=== PATIENT | male | born 1975 | race Caucasian/White ===

== ENCOUNTER 2017-01-16 20:22 | Emergency (ER) | payer SELFPAY ==
[2017-01-16 20:31] VITALS: RESP 16; TEMP 98.1
[2017-01-16] MEDS ORDERED: TDAP ADULT 0.5 ML INJ (BOOSTRIX) IM ONE (21:44)
[2017-01-16] MEDS ORDERED: HYDROCODONE/APAP 5/325 TAB PO ONE (21:44)
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
[2017-01-16] MEDS ORDERED: HYDROCOD/APAP 5/325 PREPACK#6 BTL TAKEHOME ONE (22:05)
[2017-01-16 22:52] VITALS: BP 154/85; PULSE 69; O2SAT 94
== END 2017-01-16 22:55 | disposition home or self-care (01) ==
DX: S82.832A Other fracture of upper and lower end of left fibula, initial encounter for closed fracture (principal); Z23 Encounter for immunization; V18.4XXA Pedal cycle driver injured in noncollision transport accident in traffic accident, initial encounter; Y92.410 Unspecified street and highway as the place of occurrence of the external cause; Y99.8 Other external cause status; Y93.55 Activity, bike riding

== ENCOUNTER 2017-01-24 10:59 | Day surgery (SDC) | payer MEDICAID ==
[~2017-01-24 10:59] MED LIST: ceFAZolin 2 GM/DEXTROSE 100 ML IV ONE
[2017-01-24] MEDS ORDERED: LIDOCAINE 1% 2 ML INJ ID PRN (12:07)
[2017-01-24] MEDS ORDERED: LR 1,000 ML IV ONE (12:07)
[2017-01-24] MEDS ORDERED: MIDAZOLAM 2 MG/2 ML VIAL IVP ONE (12:23)
[2017-01-24] MEDS ORDERED: BUPIVACAINE 0.5% 30 ML SDV ONE (12:23)
--- NOTE | 2017-01-24 12:26 | PDANEPAE ---
ANE Past Medical History - Cardiovascular History Hx Hypertension: No Hx Arrhythmias: No Hx Chest Pain: No Hx Coronary Artery / Peripheral Vascular Disease: No Hx CHF / Valvular Disease: No Hx Palpitations: No - Pulmonary History Hx COPD: No Hx Asthma/Reactive Airway Disease: No Hx Recent Upper Respiratory Infection: No Hx Oxygen in Use at Home: No Hx Sleep Apnea: No Sleep Apnea Screening Result - Last Documented: Negative - Neurologic History Hx Cerebrovascular Accident: No Hx Seizures: No Hx Dementia: No - Endocrine History Hx Diabetes: No - Renal History Hx Renal Disorders: No - Liver History Hx Hepatic Disorders: No - Neurological & Psychiatric Hx Hx Neurological and Psychiatric Disorders: No - Cancer History Hx Cancer: No Cancer History Comment: MOLE REMOVED - Congenital Disorder History Hx Congenital Disorders: No - Other Health History Other Health History: NEG - Chronic Pain History Chronic Pain: No - Surgical History Prior Surgeries: NONE ANE Review of Systems Review of Systems: - Exercise capacity METS (RN): 5 METS ANE Patient History - Allergies Allergies/Adverse Reactions: shellfish derived Allergy (Verified 01/16/17 20:26) - Home Medications Home Medications: Herbals/Supplements -Info Only 01/22/17 [Last Taken 01/20/17] - NPO status NPO Since - Liquids (Date): 01/24/17 NPO Since - Liquids (Time): 10:00 NPO Since - Solids (Date): 01/23/17 NPO Since - Solids (Time): 19:00 - Anes Hx Anes Hx: no prior problems - Smoking Hx Smoking Status: Never smoked - Alcohol Use Alcohol Use: Occasionally - Family Anes Hx Family Anes Hx: none Family Hx Anesthesia Complications: NEG ANE Labs/Vital Signs - Vital Signs Blood Pressure: 139/87 Heart Rate: 90 Respiratory Rate: 16 O2 Sat (%): 94 Height: 176.53 cm Weight: 81.647 kg ANE Physical Exam - Airway Neck exam: FROM Mallampati Score: Class 2 Mouth exam: normal dental/mouth exam - Pulmonary Pulmonary: no respiratory distress, clear to auscultation - Cardiovascular Cardiovascular: regular rate and rhythym, no murmur, rub, or gallop - ASA Status ASA Status: I ANE Anesthesia Plan Anesthesia Plan: general endotracheal anesthesia Regional Anesthesia: single shot NB, adductor canal FNB, popliteal SNB
--- NOTE | 2017-01-24 12:26 | PDHPUP ---
History & Physical Update H&P update statement: This history and physical update is based on an assessment of the patient which was completed after admission or registration (within 24 hours), but prior to the surgery/procedure.
[2017-01-24] MEDS ORDERED: CEFAZOLIN 2 GM/DEXTROSE/100 ML BAG IV ONE (12:42)
[2017-01-24] MEDS ORDERED: fentaNYL 100 MCG/2 ML INJ ONE (12:48)
[2017-01-24] MEDS ORDERED: PROPOFOL 200 MG/20 ML VIAL ONE ×2 (12:48→12:49)
[2017-01-24] MEDS ORDERED: DEXAMETHASONE 4 MG/ML VIAL ONE (13:14)
[2017-01-24] MEDS ORDERED: ONDANSETRON 4 MG/2 ML VIAL ONE (13:14)
[2017-01-24] MEDS ORDERED: ACETAMINOPHEN 500 MG TAB PO PRN (13:45)
[2017-01-24] MEDS ORDERED: HYDROmorphONE/DILAUDID 1 MG/ML INJ IVP PRN (13:45)
[2017-01-24] MEDS ORDERED: OXYCODONE/APAP 5/325 TAB PO PRN (13:45)
[2017-01-24] MEDS ORDERED: NALOXONE HCL 0.4 MG/ML INJ IVP PRN (13:45)
[2017-01-24] MEDS ORDERED: fentaNYL 100 MCG/2 ML INJ IVP PRN (13:45)
[2017-01-24] MEDS ORDERED: ONDANSETRON 4 MG/2 ML VIAL IVP PRN (13:45)
--- NOTE | 2017-01-24 14:56 | POSTOPPROG ---
Post Op Note Date of Operation: 01/24/17 Surgeon: Kulwant Covarrubias Director Electronics: Marcos Anesthesia: GET(General Endotracheal) Pre-op Diagnosis: left ankle fx Post-op Diagnosis: same Indication: orif left ankle Procedure: orif left ankle and syndesmosis Inf/Abcess present in the surg proc area at time of surgery?: No EBL: Minimal
[2017-01-24 15:09] VITALS: TEMP 97.7
[2017-01-24 15:46] VITALS: PULSE 75; RESP 15
[2017-01-24 16:36] VITALS: BP 108/68; O2SAT 93
--- NOTE | 2017-01-24 16:45 | POSTANESTH ---
Post Anesthetic Evaluation Cardiovascular Status: Normal, Stable, Similar to Pre-Op Cond Respiratory Status: Normal, Stable, Similar to Pre-op Cond. Level of Consciousness/Mental Status: Can Participate in Eval, Alert and Oriented Pain Control: Adequate, Prn Tx Ordered Nausea/Vomiting Control: Adequate, Prn Tx Ordered Complications Possibly Related to Anesthesia: None Noted
--- NOTE | 2017-01-24 21:41 | GOP ---
[f rep st] OPERATIVE REPORT DATE OF OPERATION: 01/24/2017 SURGEON: Kulwant Covarrubias MD NITROGLYCERIN SEPARATOR OPERATOR: Bello Rodríguez SA. ANESTHESIA: General. PREOPERATIVE DIAGNOSIS: Left ankle fracture and syndesmosis injury, deltoid ligament injury. POSTOPERATIVE DIAGNOSIS: Left ankle fracture and syndesmosis injury, deltoid ligament injury. PROCEDURE PERFORMED: 1. Open reduction internal fixation, left lateral malleolus fracture. 2. Open reduction internal fixation, left syndesmosis. FINDINGS: SPECIMENS: None. ESTIMATED BLOOD LOSS: 5 mL. INDICATIONS: This is a 41-year-old male, who sustained an ankle fracture with obvious widening of the mortise and syndesmotic injury. I saw him in the office and counseled him on risks and benefits of operative intervention. He elected to proceed. We discussed risks of nerve injury, continued pain, need for deltoid repair, need for syndesmotic fixation, need for hardware removal removal stiffness. He elected to proceed. Informed consent was obtained. All questions were answered. He was marked preoperatively. DESCRIPTION OF PROCEDURE: Patient was taken to the operative suite. He was sterilely prepped and draped in the normal fashion after blocks administered by Anesthesia. Given 2 g of Ancef. He had a large abrasion overlying the medial malleolus. I scrubbed this with Betadine prep and sterilely prepped and draped in the normal fashion. A time-out was performed verifying site, side, location , and patient. I made a lateral approach to the fibula, protecting neurovascular structures. Exposed this and debrided the fracture site. I was able to reduce this with clamps and then pin this and then placed a lag screw across this. I then placed a plate on this. Checked this fluoroscopically. Used cortical screws to bring this to bone. Placed locking screws distally and cortical screws proximally. I then removed the lag screw as it was in the way of the syndesmotic fixation. I did a stress x-ray and determined it was the syndesmosis that was moving. Clinically, he had gross movement of the syndesmosis. I held this in reduction and pinned this with the wires and checked their locations and then one at a time, I drilled and place TightRopes and sequentially tightened these up. Achieving good reduction of the syndesmosis radiographically and external rotation stress did not widen the mortise. I felt his ankle was stable, elected not to perform a deltoid repair as he had a good stable mortise. The wound was thoroughly irrigated and closed with 0 Vicryl, 2-0 Vicryl, 3-0 Quill, and Dermabond. Taken to PACU in stable condition. IMPLANTS: Arthrex lateral locking plate and screws and 2 TightRopes. COMPLICATIONS: None. DRAINS: None. CONDITION: Stable. /[id number]/MODL MTDD
== END 2017-01-24 16:35 | disposition home or self-care (01) ==
LOC: FSGY 10:59
PROVIDERS: ATTEND Orthopaedic Surgery
PROC: 0QSK04Z Reposition Left Fibula with Internal Fixation Device, Open Approach (ICD-10-PCS; principal; 2017-01-24 13:00)
PROC: 0SSG04Z Reposition Left Ankle Joint with Internal Fixation Device, Open Approach (ICD-10-PCS; principal; 2017-01-24 13:00)
DX: S82.62XA Displaced fracture of lateral malleolus of left fibula, initial encounter for closed fracture (principal); S93.432A Sprain of tibiofibular ligament of left ankle, initial encounter; S93.422A Sprain of deltoid ligament of left ankle, initial encounter; Y93.55 Activity, bike riding; V18.0XXA Pedal cycle driver injured in noncollision transport accident in nontraffic accident, initial encounter; Z87.891 Personal history of nicotine dependence
CPT/HCPCS: 27792; 27829; C1769; C1713; J0690; J1100; J2250; J2405; J2704; J3010